=== PATIENT | female | born 1955 | race Caucasian/White ===

== ENCOUNTER → 2016-05-17 | Outpatient (CLI) | payer OTHER ==
--- NOTE | 2016-05-19 12:29 | MM ---
Reason for exam: screening (asymptomatic). Last mammogram was performed 5 years and 1 month ago. History: Patient is nulliparous. Family history of breast cancer in maternal aunt at age 77. Physical Findings: A clinical breast exam by your physician is recommended on an annual basis and results should be correlated with mammographic findings. MG 3D Screening Mammo W/Cad Bilateral CC and MLO view(s) were taken. Prior study comparison: April 14, 2011, mammogram, performed at [facility]. The breast tissue is heterogeneously dense. This may lower the sensitivity of mammography. No significant changes when compared with prior studies. ASSESSMENT: Benign, BI-RAD 2 RECOMMENDATION: Routine screening mammogram of both breasts in 1 year.
== END | disposition home or self-care (01) ==
LOC: RADMAMWWP 16:01
PROVIDERS: ATTEND Obstetrics & Gynecology
DX: Z12.31 Encounter for screening mammogram for malignant neoplasm of breast (principal)
CPT/HCPCS: 77063; G0202

== ENCOUNTER 2017-11-29 11:35 | Emergency (ER) | payer OTHER ==
[2017-11-29 11:59] VITALS: BP 124/64; PULSE 69; RESP 18; TEMP 98
[2017-11-29] MEDS ORDERED: AMOXIC-POT CLAV 875MG STARTER 2 EACH TABLET PO STA (12:23)
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
== END 2017-11-29 12:38 | disposition home or self-care (01) ==
LOC: EC 11:35
DX: S61.552A Open bite of left wrist, initial encounter (principal); Z88.8 Allergy status to other drugs, medicaments and biological substances; W50.3XXA Accidental bite by another person, initial encounter; Y92.69 Other specified industrial and construction area as the place of occurrence of the external cause; Y99.0 Civilian activity done for income or pay
CPT/HCPCS: 99283

== ENCOUNTER → 2022-07-15 | Outpatient (CLI) | payer MEDICARE, OTHER ==
--- NOTE | 2022-07-17 10:05 | MR ---
EXAMINATION TYPE: MR liver wo/w con DATE OF EXAM: 07/15/2022 9:44 AM INDICATION: Patient age:Female; 67 years old; Reason for study: K76.89 other specified diseases of liver. Abnormal CT. COMPARISON: CT scan abdomen from 04/13/2022. TECHNIQUE: Multiplanar multi-sequence imaging was performed without contrast. Post contrast imaging was performed. Post IV contrast subtraction images were also submitted for review. IV Contrast: 7 cc Gadavist FINDINGS: LOWER CHEST: No gross irregularity. ABDOMEN Liver: Multiple simple appearing high T2 hepatic cysts are present. The largest in the left hepatic lobe amira r the dome measuring up to 13 mm in the right hepatic lobe with thin septation measuring 2.4 x 2.1 cm . Postcontrast imaging of the simple and minimally complex cysts demonstrate. Posterior right hepatic lobe observation with mild heterogeneity is predominantly high T2 signal leann uring 2.1 x 2.1 cm. Contrast imaging demonstrates some peripheral enhancement which progresses on del ayed imaging. No evidence for washout. On diffusion-weighted imaging there is somewhat lobular high D WI signal. Gallbladder and Bile ducts: Unremarkable. Pancreas: Unremarkable. Spleen: Unremarkable. Adrenal glands: Unremarkable. Kidneys: Scattered high T1 signal foci within the left kidney measuring up to 5 mm are present. These do not demonstrate postcontrast enhancement. Stomach and Bowel: Unremarkable as visualized. Peritoneum: No evidence of pneumoperitoneum or free fluid. Vasculature: Unremarkable. No aortic aneurysm. Musculoskeletal: The osseous structures appear intact. Lymph Nodes: No gross evidence for lymphadenopathy. Abdominal wall: Unremarkable. IMPRESSION: 1. Right hepatic lobe segment 6 lesion measuring 2.1 cm has indeterminate enhancement characteristic s. It is stable in size from 04/13/2022. There is some delayed enhancement along the periphery suggesti ve of hemangioma however other etiologies can also have delayed enhancement including cholangiocarcin arcadio. Short-term follow-up in 3 months is recommended to ensure stability. If there are outside imagin g of the abdomen, comparisons would be of benefit. 2. Multiple hepatic cysts some with minimal internal complexity/thin septations. 3. Scattered subcentimeter left renal proteinaceous/hemorrhagic cyst.
== END | disposition home or self-care (01) ==
LOC: RADMRIMAIN 08:52
PROVIDERS: ATTEND Family Medicine
DX: K76.89 Other specified diseases of liver (principal); N28.1 Cyst of kidney, acquired
CPT/HCPCS: 74183; A9585

== ENCOUNTER → 2022-10-16 | Outpatient (CLI) | payer MEDICARE ==
--- NOTE | 2022-10-16 13:27 | MR ---
EXAMINATION TYPE: MR liver wo/w con DATE OF EXAM: 10/16/2022 9:06 AM INDICATION: Patient age:Female; 67 years old; Reason for study: K76.89; [facility]. COMPARISON: MR liver 10/16/2022 TECHNIQUE: Multiplanar multi-sequence imaging was performed without contrast. Post contrast imaging was performed. Post IV contrast subtraction images were also submitted for review. IV Contrast: 7 cc Gadavist FINDINGS: LOWER CHEST: No gross irregularity. ABDOMEN Liver: Multiple simple appearing high T2 hepatic cysts are again present. Postcontrast imaging of the simple and minimally complex cysts demonstrate a similar appearance. Stable posterior right hepatic lobe lesion with mild heterogeneity and predominantly high T2 signal m easuring 2.1 x 1.9 cm, previously 2.1 x 2.1 cm. Contrast imaging again demonstrates some peripheral e nhancement which progresses on delayed imaging. No evidence for washout. On diffusion-weighted imagin g there is somewhat lobular high DWI signal again demonstrated. Gallbladder and Bile ducts: Unremarkable. Pancreas: Unremarkable. Spleen: Unremarkable. Adrenal glands: Unremarkable. Kidneys: Scattered high T1 signal foci within the left kidney measuring up to 5 mm are present. These do not demonstrate postcontrast enhancement. Stomach and Bowel: Unremarkable as visualized. Peritoneum: No evidence of pneumoperitoneum or free fluid. Vasculature: Unremarkable. No aortic aneurysm. Musculoskeletal: The osseous structures appear intact. Lymph Nodes: No gross evidence for lymphadenopathy. Abdominal wall: Unremarkable. IMPRESSION: 1. Stable right hepatic lobe segment 6 lesion measuring 2.1 cm has similar indeterminate enhancement characteristics. There is again some delayed enhancement along the periphery suggestive of atypical hemangioma however other etiologies can also have delayed enhancement. Stable overall appearance like ly represents a benign process. Follow-up MR liver in 6-12 months is recommended to assess for stabil ity. 2. Multiple stable hepatic cysts some with minimal internal complexity/thin septations. 3. Scattered stable subcentimeter left renal proteinaceous/hemorrhagic cyst.
== END | disposition home or self-care (01) ==
LOC: RADMRIMAIN 07:48
PROVIDERS: ATTEND Family Medicine
DX: K76.89 Other specified diseases of liver (principal); N28.89 Other specified disorders of kidney and ureter
CPT/HCPCS: 74183; A9585

== ENCOUNTER → 2023-04-13 | Outpatient (CLI) | payer MEDICARE ==
--- NOTE | 2023-04-14 13:52 | MR ---
EXAMINATION TYPE: MR liver wo/w con DATE OF EXAM: 04/13/2023 10:46 PM CLINICAL INDICATION:Female, 67 years old with history of K76.89 DISEASE OF LIVER; Re-check on liver l esion COMPARISON: MRI liver 10/16/2022, 07/15/2022, CT 04/13/2022. TECHNIQUE: Multiplanar multi-sequence imaging was performed without contrast. Post contrast imaging was performed. Post IV contrast subtraction images were also submitted for review. IV Contrast: 7 cc Gadobutrol FINDINGS: LOWER CHEST: No gross irregularity. ABDOMEN Liver: Stable simple appearing high T2 hepatic cysts. Postcontrast imaging of the simple and minimally compl ex cysts demonstrate a similar appearance. Stable posterior right hepatic lobe lesion with mild heterogeneity and predominantly high T2 signal m easuring similarly at 2.1 x 2.1 cm. Contrast imaging again demonstrates some peripheral enhancement w hich progresses on delayed imaging. No evidence for washout. On diffusion-weighted imaging there is s omewhat lobular high DWI signal again demonstrated. Gallbladder and Bile ducts: Unremarkable. Pancreas: Unremarkable. Spleen: Unremarkable. Adrenal glands: Unremarkable. Kidneys: Stable scattered high T1 signal foci within the left kidney measuring up to 5 mm are present . These do not demonstrate postcontrast enhancement. Stomach and Bowel: Unremarkable as visualized. Large amount stool seen throughout the abdomen. Peritoneum: No evidence of pneumoperitoneum or free fluid. Vasculature: Unremarkable. No aortic aneurysm. Musculoskeletal: The osseous structures appear intact. Lymph Nodes: No gross evidence for lymphadenopathy. Abdominal wall: Unremarkable. IMPRESSION: 1. Stable from at least 08/01/2022, right hepatic lobe segment 6 lesion measuring 2.1 cm has similar indeterminate enhancement characteristics. There is again some delayed enhancement along the peripher y suggestive of atypical hemangioma however other etiologies can also have delayed enhancement. Stabl e overall appearance likely represents a benign process. Follow-up MR liver in 12 months is recommend ed to assess for stability. 2. Stable multiple stable hepatic cysts some with minimal internal complexity/thin septations. 3. Stable scattered stable subcentimeter left renal proteinaceous/hemorrhagic cyst.
== END | disposition home or self-care (01) ==
LOC: RADMRIMAIN 21:30
PROVIDERS: ATTEND Family Medicine
DX: K76.89 Other specified diseases of liver (principal); N28.1 Cyst of kidney, acquired
CPT/HCPCS: 74183; A9585

== ENCOUNTER → 2023-11-01 | Outpatient (CLI) | payer MEDICARE ==
--- NOTE | 2023-11-01 09:08 | CT ---
EXAMINATION TYPE: CT sinus wo con CT DLP: 445 mGycm, Automated exposure control for dose reduction was used. DATE OF EXAM: 11/01/2023 8:47 AM COMPARISON: None. CLINICAL INDICATION: Female, 68 years old with history of R04.0 Epistaxis; , Epistaxis TECHNIQUE: Multiple thin axial images were obtained through the paranasal sinuses without the use of IV contrast. Additional coronal and sagittal reformatted images were submitted for evaluation. Contrast used: none Oral contrast used: none FINDINGS: Frontal sinuses: Normally developed and aerated. Frontal Recess: Clear Maxillary Sinuses: Retention cysts bilaterally. Normally developed and aerated otherwise. Maxillary Infundibula([facility]): Clear, No Marky cells identified. Ethmoid sinuses: Normally developed and aerated. Ethmoidal notch: Protected and abutting the lateral lamina. Sphenoid sinuses: Normally developed and aerated. There is sellar sphenoid sinus pneumatization witho ut evidence of dehiscence. No dehiscence of carotid canal. No evidence of optic nerve dehiscence wit hin the sphenoid sinus. No evidence of Onodi cells. Sphenoethmoidal recesses: Clear. Nasal septum: Deviated rightward with spurring. Nasal Turbinates: Mucosal thickening of the inferior turbinates. Mastoid air cells & middle ears: The air cells are clear. The middle ears are grossly unremarkable. Modified Soft tissues & Brain: Partially seen without gross abnormality. Globes are intact. Other: Cribriform plate demonstrates symmetric Keros classification type 1 cribriform plate. No evidence of bony dehiscence of skull base. Lamina papyracea is intact without evidence of remote orbital fracture or orbital prolapse into the e thmoid sinus. IMPRESSION: 1. No significant mucosal sinus disease. 2. The ostiomeatal units, frontonasal and sphenoethmoidal recesses are clear.
== END | disposition home or self-care (01) ==
LOC: RADCTMAIN 08:17
PROVIDERS: ATTEND Family Medicine
DX: R04.0 Epistaxis (principal)
CPT/HCPCS: 70486

== ENCOUNTER → 2024-04-24 | Outpatient (CLI) | payer MEDICARE ==
--- NOTE | 2024-04-25 08:37 | MR ---
EXAMINATION TYPE: MR liver wo/w con DATE OF EXAM: 04/24/2024 7:48 PM INDICATION: Patient age:Female; 68 years old; Reason for study: K76.89 OTHER SPECIFIED DISEASES OF LIVER; [facility]. COMPARISON: MR liver 04/13/2023, 10/16/2022, 07/15/2022, CT urogram 04/13/2022 TECHNIQUE: Multiplanar multi-sequence imaging was performed without and with IV contrast. The patien t was given 7 ccs of Gadavist intravenously and dynamic imaging was performed. Post IV contrast subtr action images were also submitted for review. FINDINGS: Motion degraded examination. LOWER CHEST: Mild cardiomegaly. ABDOMEN Liver: No significant change of multiple simple appearing thin-walled high T2 hepatic cysts. Postcontrast im aging of the simple and minimally complex cysts demonstrate a similar appearance. Stable posterior right hepatic lobe segment lesion with mild heterogeneity and predominantly high T2 signal measuring 2.1 x 1.9 cm. Contrast imaging again demonstrates some peripheral nodular enhance ment which progresses on delayed imaging. No evidence for washout. This does not completely fill in o n postcontrast imaging at 9 minutes. On diffusion-weighted imaging there is somewhat lobular high DWI signal again demonstrated. No new concerning hepatic lesions. Gallbladder and Bile ducts: Unremarkable. Pancreas: Unremarkable. Spleen: Unremarkable. Adrenal glands: Unremarkable. Kidneys: Scattered nonenhancing high T1 signal foci within the left kidney measuring up to 5 mm are p resent again. No hydronephrosis. Stomach and Bowel: Unremarkable as visualized. Peritoneum: No evidence of pneumoperitoneum or free fluid. Vasculature: Unremarkable. No aortic aneurysm. Musculoskeletal: The osseous structures appear intact. Lymph Nodes: No gross evidence for lymphadenopathy. Abdominal wall: Unremarkable. IMPRESSION: 1. Stable right hepatic lobe segment lesion measuring 2.1 cm with similar indeterminate enhanceme nt characteristics. There is again some delayed enhancement along the periphery. Stable overall appea bela for 2 years suggests a benign process. Favored to represent an atypical hemangioma. 2. Multiple stable hepatic cysts some with minimal internal complexity/thin septations. 3. Scattered stable subcentimeter left renal proteinaceous/hemorrhagic cyst. [facility], , 04/25/2024 8:35 AM
== END | disposition home or self-care (01) ==
LOC: RADMRIMAIN 17:36
PROVIDERS: ATTEND Family Medicine
DX: K76.89 Other specified diseases of liver (principal); N28.1 Cyst of kidney, acquired
CPT/HCPCS: 74183; A9585